=== PATIENT | female | born 1960 | race Caucasian/White ===

== ENCOUNTER 2019-07-25 21:27 | Emergency (ER) | payer OTHER ==
[~2019-07-25] VITALS: Ht 154.9 cm; Wt 58.5 kg
[2019-07-25 21:49] VITALS: Ht 154.9 cm; Wt 58.5 kg
[2019-07-26 01:22] VITALS: BP 150/84
== END 2019-07-26 01:22 | disposition home or self-care (01) ==
LOC: ED 21:27
DX: S39.012A Strain of muscle, fascia and tendon of lower back, initial encounter (principal); I10 Essential (primary) hypertension; M06.9 Rheumatoid arthritis, unspecified; W18.09XA Striking against other object with subsequent fall, initial encounter; Y93.89 Activity, other specified; Y92.89 Other specified places as the place of occurrence of the external cause; Y99.8 Other external cause status

== ENCOUNTER 2019-08-17 16:25 | Emergency (ER) | payer OTHER ==
[~2019-08-17] VITALS: Ht 157.5 cm; Wt 56.7 kg
[2019-08-17 16:39] VITALS: Ht 157.5 cm; Wt 56.7 kg
[2019-08-17 19:16] VITALS: BP 134/87
== END 2019-08-17 19:16 | disposition home or self-care (01) ==
LOC: ED 16:25
DX: B34.9 Viral infection, unspecified (principal); I10 Essential (primary) hypertension
CPT/HCPCS: 87804; Q0092